=== PATIENT | female | born 1990 | race African-American/Black ===

== ENCOUNTER 2017-07-27 14:16 | Emergency (ER) | payer OTHER ==
[~2017-07-27] VITALS: Ht 162.6 cm; Wt 61.0 kg
[2017-07-27 15:55] LABS: BASOPHILS % 0.5 % (0.0-2.0); EOSINOPHILS % 1.1 % (0.0-5.0); HEMATOCRIT. 39.1 % (36.0-48.0); HEMOGLOBIN. 13.5 g/dL (12.0-16.0); LYMPHOCYTES % 46.3 % (20.0-50.0); MEAN CORPUSCULAR HEMOGLOBIN 29.7 pg (28.0-32.0); MEAN CORPUSCULAR VOLUME 86.3 fL (81.0-99.0); MEAN PLATELET VOLUME 8.5 fl (7.4-10.4); MONOCYTES % 5.5 % (2.0-8.0); NEUTROPHILS % 46.6 % (40.0-76.0); PLATELET 271 x1000/uL (130-400); RED BLOOD CELL COUNT 4.53 mill/uL (4.2-5.4); RED CELL DISTRIBUTION WIDTH 11.9 % (11.6-14.6)
[2017-07-27 15:59] LABS: CHLORIDE 104 mEq/L (98-107)
[2017-07-27 16:07] LABS: INR 1.3; PROTHROMBIN TIME 13.7 sec (9.4-11.6)
[2017-07-27 16:21] LABS: HCG SCREEN NEGATIVE
[2017-07-27] MEDS ORDERED: IBUPROFEN 600MG TABLET PO ONE (16:30)
[2017-07-27 17:12] LABS: CLARITY URINE CLEAR (CLEAR); COLOR URINE YELLOW (YELLOW); KETONES URINE NEGATIVE (NEGATIVE); LEUKOCYTE ESTERASE URINE NEGATIVE (NEGATIVE); NITRITE URINE NEGATIVE (NEGATIVE); OCCULT BLOOD URINE NEGATIVE (NEGATIVE); PH URINE 5.5 (4.5-8.0); PROTEIN URINE NEGATIVE (NEGATIVE); SPECIFIC GRAVITY URINE 1.018 (1.005-1.030); UROBILINOGEN URINE 0.2 E.U./dL (0.2-1.0)
[2017-07-27 18:47] VITALS: BP 110/74
== END 2017-07-27 19:12 | disposition home or self-care (01) ==
LOC: ER 16:11
DX: R10.2 Pelvic and perineal pain (principal); Z98.890 Other specified postprocedural states
CPT/HCPCS: 36415; 76830; 76856; 80053; 81003; 83690; 84703; 85025; 85610; 99285

== ENCOUNTER 2019-07-28 19:01 | Emergency (ER) | payer OTHER ==
[~2019-07-28] VITALS: Ht 160 cm; Wt 63.0 kg
[2019-07-28 19:16] VITALS: BP 117/69
== END 2019-07-28 22:45 | disposition home or self-care (01) ==
LOC: ER 19:01
DX: J06.9 Acute upper respiratory infection, unspecified (principal); R03.0 Elevated blood-pressure reading, without diagnosis of hypertension
CPT/HCPCS: 71045; 81025; 87804; 99284